=== PATIENT | male | born 1960 | race African-American/Black ===

== ENCOUNTER 2017-08-07 17:29 | Emergency (ER) | payer OTHER ==
[~2017-08-07] VITALS: Ht 185.4 cm; Wt 97.4 kg
[2017-08-07] MEDS ORDERED: LAMOTRIGINE150 MG PO (19:22)
[2017-08-07] MEDS ORDERED: AMOXICILLIN500 MG PO (19:50)
[2017-08-07] MEDS ORDERED: LAMICTAL150 M1 PO (19:50)
[2017-08-07 20:02] VITALS: BP 149/79
== END 2017-08-07 20:03 | disposition home or self-care (01) ==
LOC: EME 17:29
DX: G40.909 Epilepsy, unspecified, not intractable, without status epilepticus (principal); J01.90 Acute sinusitis, unspecified
CPT/HCPCS: 99281; 99284